=== PATIENT | male | born 1955 | race American Indian/Alaskan Native ===

== ENCOUNTER 2016-05-22 13:51 | Outpatient (CLI) | payer BC ==
--- NOTE | 2016-05-23 17:33 | Vascular Lab Report ---
LOWER EXTREMITY VENOUS DUPLEX: REASON FOR EXAM: Swelling. COMMENTS ON THE RIGHT: All veins visualized are freely compressible without evidence of internal echogenicity. Flow is spontaneous and phasic throughout. Soft tissue changes noted in the right lower extremity are consistent with swelling. COMMENTS ON THE LEFT: All veins visualized are freely compressible without evidence of internal echogenicity. Flow is spontaneous and phasic throughout. IMPRESSION: No evidence of acute or chronic deep venous thrombosis in either lower extremity.
== END 2016-05-22 13:52 | disposition home or self-care (01) ==
LOC: VAS 13:51
PROVIDERS: ATTEND Internal Medicine Hematology
DX: M25.571 Pain in right ankle and joints of right foot (principal); M25.572 Pain in left ankle and joints of left foot; C83.30 Diffuse large B-cell lymphoma, unspecified site
CPT/HCPCS: 93970

== ENCOUNTER 2016-06-26 13:26 | Outpatient (CLI) | payer BC ==
--- NOTE | 2016-06-27 08:30 | Vascular Lab Report ---
LOWER EXTREMITY VENOUS DUPLEX: REASON FOR EXAM: Swelling of the lower extremities. COMMENTS ON THE RIGHT: All veins visualized are freely compressible without evidence of internal echogenicity. Flow is spontaneous and phasic throughout. COMMENTS ON THE LEFT: All veins visualized are freely compressible without evidence of internal echogenicity. Flow is spontaneous and phasic throughout. IMPRESSION: No evidence of acute or chronic deep venous thrombosis in either lower extremity.
== END 2016-06-26 13:27 | disposition home or self-care (01) ==
LOC: VAS 13:26
PROVIDERS: ATTEND Internal Medicine Hematology
DX: M79.89 Other specified soft tissue disorders (principal); C83.30 Diffuse large B-cell lymphoma, unspecified site
CPT/HCPCS: 93970

== ENCOUNTER 2016-11-11 10:58 | Day surgery (SDC) | payer BC ==
[2016-11-11 12:06] LABS: INR 1.25 (0.87-1.13); Partial Thromboplastin Time 30.3 Sec. (24.2-36.6)
[2016-11-11] MEDS ORDERED: SUBLIMAZE IV ONE (14:33)
--- NOTE | 2016-11-11 14:59 | Short Stay Summary ---
Short Stay Documentation Date of service: 11/11/16 - History Past Medical History: other (lymphoma) - Allergies and Medications Current Medications: Allergies No Known Allergies Allergy (Verified 08/29/15 00:43) Home Medications Medication Instructions Recorded Confirmed Last Taken Type Hydrochlorothiazide [HCTZ] 25 mg PO QDAY #30 tablet 08/29/15 11/11/16 11/11/16 02:00 Rx 25mg AtorvaSTATin 40 mg PO DAILY 11/11/16 11/11/16 11/10/16 History 40mg Carvedilol 6.25 mg PO BID 11/11/16 11/11/16 11/10/16 History 6.25mg Furosemide 20 mg PO DAILY 11/11/16 11/11/16 11/11/16 History 0300 HYDROcodone/APAP 10-325 1 tab PO Q6H PRN 11/11/16 11/11/16 11/10/16 History 40mg Lisinopril [Zestril TAB] 20 mg PO DAILY 11/11/16 11/11/16 11/10/16 History 20mg [place] 10-325 mg TAB 1 tab PO Q6H 11/11/16 11/11/16 11/11/16 03:00 History 1 tab Pantoprazole 40 mg PO DAILY 11/11/16 11/11/16 11/10/16 History 40mg Potassium Chloride [Klor-Con 10] 10 meq PO DAILY 11/11/16 11/11/16 11/10/16 History 10meq Ursodiol 300 mg PO TID 11/11/16 11/11/16 11/10/16 History 300mg - Physical exam General appearance: no acute distress - Brief post op/procedure progress note Date of procedure: 11/11/16 Pre-op diagnosis: Rt pleural effusion Post-op diagnosis: same Procedure: US guided rt. thoracentesis Anesthesia: local Findings: 900 cc of slight blood tinged pleural fluid removed. Surgeon: ARCHIE DUNLAP Estimated blood loss: none Specimen disposition: to lab Condition: stable - Disposition Condition at discharge: Good Disposition: [id number] TO HOME OR SELFCARE Short Stay Discharge Plan Follow up with: KATHY TAY MD [Primary Care Provider] - 7 Days
--- NOTE | 2016-11-11 15:04 | Ultrasound Report ---
ULTRASOUND THORACENTESIS INDICATION: B-cell lymphoma. COMPARISON: None similar. FINDINGS: Ultrasound guided right thoracentesis performed. Written informed consent obtained after explaining the risks and benefits. Patient brought in the ultrasound room. An appropriate skin site marked. Using standard sterile precautions and 1% lidocaine for local anesthesia, 5 [place] Yueh catheter advanced into the pleural fluid. Total of approximately 900 cc of slight blood tinged serous fluid obtained with sample sent to the lab. Catheter removed and hemostasis achieved. Patient returned to [facility]PP[facility]. Patient given 25 mcg of fentanyl IV for post procedure pain. CONCLUSION: Status post left thoracentesis, as described. A 1 hour post procedure chest x-ray ordered. Dr. Laureano present for and performed the entire procedure. Thank you for the opportunity to participate in this patient's care.
[2016-11-11 15:40] VITALS: BP 148/89
--- NOTE | 2016-11-11 16:06 | XRay Report ---
PORTABLE CHEST INDICATION: Post right thoracentesis. COMPARISON: None similar. FINDINGS: Portable, frontal chest radiograph demonstrates mild bibasilar haziness, left greater than right with obscured left hemidiaphragm. No pneumothorax. Normal cardiomediastinal silhouette. Intact bones. CONCLUSION: No evidence of right pneumothorax with left basilar opacity and mild right basilar haziness, as described. Thank you for the opportunity to participate in this patient's care.
[2016-11-15 14:20] LABS: CYTOMETRY FIRST MARKER SCANNED INTO MED REC
[2016-11-15 14:21] LABS: FLOW CYTOMETRY >16 SCANNED INTO MED REC
== END 2016-11-11 14:23 | disposition home or self-care (01) ==
LOC: CATHLABREC 10:58 → EDSTATUS 11:01 → CATHLABREC 14:23
PROVIDERS: ATTEND Internal Medicine Hematology
DX: C83.30 Diffuse large B-cell lymphoma, unspecified site (principal)
CPT/HCPCS: 32555; 36415; 71010; 85610; 85730; 88112; 88184; 88185; 88305; 88341; 88342; 96374; J3010

== ENCOUNTER 2016-11-15 13:51 | Outpatient (CLI) | payer BC ==
--- NOTE | 2016-11-15 14:20 | XRay Report ---
CHEST 2 VIEWS INDICATION: Paracentesis. COMPARISON: 11/11/2016 FINDINGS: Frontal and lateral chest radiographs demonstrate partial interval clearing of bibasilar haziness, though small bilateral pleural effusions remain. Approximately 5 mm calcified granuloma again projects near the right costophrenic angle. Normal cardiomediastinal silhouette. Aortic knob calcifications. No CHF. Intact bones. CONCLUSION: Resolving bibasilar hazy atelectasis/effusions and few other incidental findings, as above. Thank you for the opportunity to participate in this patient's care.
== END 2016-11-15 13:52 | disposition home or self-care (01) ==
LOC: XRAY 13:51
PROVIDERS: ATTEND Internal Medicine
DX: J18.9 Pneumonia, unspecified organism (principal); J90 Pleural effusion, not elsewhere classified; J84.10 Pulmonary fibrosis, unspecified; I70.0 Atherosclerosis of aorta
CPT/HCPCS: 71020

== ENCOUNTER 2016-12-05 11:44 | Outpatient (CLI) | payer BC ==
--- NOTE | 2016-12-05 15:26 | XRay Report ---
CHEST 2 VIEWS INDICATION: Shortness of breath. COMPARISON: 11/15/2016 FINDINGS: PA and lateral chest radiographs again demonstrate small bibasilar effusions, right greater than left, partly obscuring the diaphragm. Stable cardiomediastinal silhouette, slight aortic knob calcifications and osseous structures. Approximately 5 mm calcified granuloma again projects about the right costophrenic angle. CONCLUSION: Small bibasilar effusions and few other stable findings, as above. Thank you for the opportunity to participate in this patient's care.
== END 2016-12-05 11:45 | disposition home or self-care (01) ==
LOC: SPVIMAG 11:44
PROVIDERS: ATTEND Internal Medicine Hematology
DX: J90 Pleural effusion, not elsewhere classified (principal); J84.10 Pulmonary fibrosis, unspecified; I70.0 Atherosclerosis of aorta; C83.30 Diffuse large B-cell lymphoma, unspecified site; I10 Essential (primary) hypertension; E78.00 Pure hypercholesterolemia, unspecified
CPT/HCPCS: 71020

== ENCOUNTER 2016-12-20 10:33 | Outpatient (CLI) | payer BC, OTHER ==
--- NOTE | 2016-12-20 15:14 | XRay Report ---
CHEST 2 VIEWS INDICATION: Shortness of breath. Recurrent effusions. COMPARISON: 12/05/2016 FINDINGS: PA and lateral chest radiographs demonstrate stable cardiomediastinal silhouette, right basilar opacity/small effusion, approximately 5 mm right lung base calcified granuloma, aortic knob calcifications and few spinal degenerative changes. CONCLUSION: Right basilar opacity/effusion again noted with few other incidental findings, as above. Thank you for the opportunity to participate in this patient's care.
== END 2016-12-20 10:34 | disposition home or self-care (01) ==
LOC: SPVIMAG 10:33
PROVIDERS: ATTEND Internal Medicine Hematology
DX: J84.10 Pulmonary fibrosis, unspecified (principal); I70.0 Atherosclerosis of aorta; C83.30 Diffuse large B-cell lymphoma, unspecified site
CPT/HCPCS: 71020

== ENCOUNTER 2016-12-23 11:23 | Inpatient (IN) | payer BC, OTHER ==
--- NOTE | 2016-12-23 12:26 | Consultation ---
History of Present Illness History of present illness: This is a patient with hx of NHL and recurrent pleural effusion sp at least 2 thoracentesis with neg cytology and now recurrent eff seen on cxr 12/20 and worsening symptoms. He was seen in office on friday cxr done at [facility] showed reaccumulation of fluid. Pleurodisis vs pleurx cath was discussed at that visit. This am pt called and came in reporting worsening dyspnea. No associated fever Past History Past Medical History: other (NHL) Social history: , lives with family Family history: hypertension Medications and Allergies Allergies Allergy/AdvReac Type Severity Reaction Status Date / Time No Known Allergies Allergy Verified 08/29/15 00:43 Home Medications Medication Instructions Recorded Confirmed Last Taken Type Hydrochlorothiazide [HCTZ] 25 mg PO QDAY #30 tablet 08/29/15 11/11/16 11/11/16 02:00 Rx 25mg AtorvaSTATin 40 mg PO DAILY 11/11/16 11/11/16 11/10/16 History 40mg Carvedilol 6.25 mg PO BID 11/11/16 11/11/16 11/10/16 History 6.25mg Furosemide 20 mg PO DAILY 11/11/16 11/11/16 11/11/16 History 0300 HYDROcodone/APAP 10-325 1 tab PO Q6H PRN 11/11/16 11/11/16 11/10/16 History 40mg Lisinopril [Zestril TAB] 20 mg PO DAILY 11/11/16 11/11/16 11/10/16 History 20mg [place] 10-325 mg TAB 1 tab PO Q6H 11/11/16 11/11/16 11/11/16 03:00 History 1 tab Pantoprazole 40 mg PO DAILY 11/11/16 11/11/16 11/10/16 History 40mg Potassium Chloride [Klor-Con 10] 10 meq PO DAILY 11/11/16 11/11/16 11/10/16 History 10meq Ursodiol 300 mg PO TID 11/11/16 11/11/16 11/10/16 History 300mg Physical Examination Eyes: non-icteric ENT: oropharynx moist Neck: supple Effort: normal Ascultation: Right: diminished breath sounds Percussion: Right: dull (1/4) Cardiovascular: regular rate and rhythm Gastrointestinal: normoactive bowel sounds, soft, non-tender Integumentary: normal Extremities: no cyanosis Musculoskeletal: no deformities Assessment and Plan - Patient Problems (1) Non-Hodgkin lymphoma Status: Acute Qualifiers: Non-Hodgkin lymphoma type: N Follicular lymphoma type: F Follicular lymphoma grade: F Non-follicular lymphoma type: N Mature NK/T-cell lymphoma type: M B-cell lymphoma type: B Other specified types of NK/T-cell lymphoma : O Lymphoma site: L (2) Pleural effusion Status: Acute
[2016-12-23 13:53] LABS: Hematocrit 43.7 % (35.5-45.6); Hemoglobin 13.8 gm/dl (11.8-15.2); Mean Corpuscular HGB Conc 32 % (32-34); Mean Corpuscular Hemoglobin 26 pg (28-32); Mean Corpuscular Volume 83 fl (84-94); Platelet Count 136 K/mm3 (140-440); Red Blood Count 5.29 M/mm3 (3.65-5.03); Red Cell Distribution Width 15.5 % (13.2-15.2); White Blood Count 4.2 K/mm3 (4.5-11.0)
[2016-12-23 14:01] LABS: INR 1.19 (0.87-1.13)
[2016-12-23 14:29] LABS: Alanine Aminotransferase 15 units/L (7-56); Albumin 3.7 g/dL (3.9-5); Albumin/Globulin Ratio 1.5 %; Alkaline Phosphatase 102 units/L (35-129); Anion Gap 19 mmol/L; Blood Urea Nitrogen 12 mg/dL (9-20); Calcium 8.8 mg/dL (8.4-10.2); Carbon Dioxide 24 mmol/L (22-30); Chloride 105.5 mmol/L (98-107); Glucose 172 mg/dL (75-100); Sodium 144 mmol/L (137-145); Total Protein 6.1 g/dL (6.3-8.2)
[2016-12-23 15:05] LABS: Blastocytes % (Manual) 0 %
[2016-12-23 15:06] LABS: Diff Status Complete; Elliptocytes Few; Ovalocytes Few; Platelet Estimate Consistent w Auto; Poikilocytosis Few
--- NOTE | 2016-12-23 16:35 | Ultrasound Report ---
ULTRASOUND CHEST History: Recurrent right pleural effusion. Findings: Transabdominal grayscale images were obtained along the right side of the chest. The images demonstrate a moderate right pleural effusion with volume estimated at 452 cc. This exam was scheduled for an ultrasound-guided thoracentesis. The patient was uncertain if he wanted to proceed with the exam. It was decided to postpone the exam until tomorrow until the patient has time to consult with the ordering physician. Impression: Moderate right pleural effusion estimated at 452 cc. The patient did not consent for ultrasound thoracentesis. See above.
[2016-12-23] MEDS ORDERED: MORPHINE IV PRN (18:41)
--- NOTE | 2016-12-23 21:47 | History and Physical Report ---
History of Present Illness Date of examination: 12/23/16 Date of admission: 12/23/16 13:24 Chief complaint: CC Increasing SOB 3 days History of present illness: 61 year old male with recurrent RT pleural effusion s/p thoracentesisx2 sent in from Dr Marie's office for thoracentesis/Pleurodesis.Patient has Non Hogkin's Lymphoma in Apparent remission.No Chest pain.No fever or chills. Patient is a direct admit Past History Past Medical History: hypertension, hyperlipidemia, other (NHL) Past Surgical History: Other (S/p Thoracentesis) Social history: , lives with family Family history: hypertension Medications and Allergies Allergies Allergy/AdvReac Type Severity Reaction Status Date / Time No Known Allergies Allergy Verified 08/29/15 00:43 Home Medications Medication Instructions Recorded Confirmed Last Taken Type AtorvaSTATin 40 mg PO DAILY 11/11/16 12/23/16 12/22/16 History Carvedilol 6.25 mg PO BID 11/11/16 12/23/16 12/22/16 History Lisinopril [Zestril TAB] 20 mg PO DAILY 11/11/16 12/23/16 12/22/16 History [place] 10-325 mg TAB 1 tab PO Q6H 11/11/16 12/23/16 12/22/16 History Pantoprazole 40 mg PO DAILY 11/11/16 12/23/16 12/22/16 History Potassium Chloride [Klor-Con 10] 10 meq PO BID MDD 2 11/11/16 12/23/16 12/22/16 History Ursodiol 300 mg PO TID MDD 3 11/11/16 12/23/16 12/22/16 History Active Meds: Active Medications Morphine Sulfate (Morphine) 2 mg IV Q4H PRN PRN Reason: Pain, Moderate (4-6) Review of Systems All systems: negative Constitutional: no weight loss, no weight gain, no fever, no chills, no sweats, no night sweats Ears, nose, mouth and throat: no dysphagia, no hoarseness, no sore throat, no swelling in mouth, no swelling in throat, no odynophagia Cardiovascular: shortness of breath, no chest pain, no orthopnea, no palpitations, no rapid/irregular heart beat, no edema, no syncope, no lightheadedness Respiratory: shortness of breath, dyspnea on exertion, no cough, no cough with sputum, no excessive sputum, no hemoptysis Gastrointestinal: no abdominal pain, no nausea, no vomiting, no diarrhea, no constipation, no change in bowel habits, no hematemesis, no coffee ground emesis Genitourinary Male: no dysuria, no hematuria, no flank pain, no discharge, no urinary frequency, no urinary hesitancy, no nocturia Rectal: no pain Musculoskeletal: no neck stiffness, no neck pain, no shooting arm pain, no arm numbness/tingling, no low back pain, no shooting leg pain, no leg numbness/ tingling, no redness of joints Integumentary: no rash, no pruritis, no redness, no sores, no wounds, no jaundice, no boils, no blisters Neurological: no seizures, no syncope Psychiatric: no anxiety, no memory loss, no change in sleep habits, no sleep disturbances, no insomnia, no hypersomnia, no change in appetite, no change in libido Endocrine: no cold intolerance, no heat intolerance, no polyphagia, no excessive thirst, no polydipsia, no polyuria, no nocturia, no excessive sweating , no flushing, no weight change Hematologic/Lymphatic: no easy bruising, no easy bleeding Allergic/Immunologic: no urticaria, no allergic rhinitis, no wheezing Exam - Constitutional Vitals: Temp Pulse Resp BP Pulse Ox 98.2 F 109 H 20 171/108 92 12/23/16 16:46 12/23/16 16:46 12/23/16 16:46 12/23/16 16:46 12/23/16 16:46 General appearance: Present: no acute distress, well-nourished - EENT Eyes: Present: PERRL ENT: hearing intact, clear oral mucosa - Neck Neck: Present: supple, normal ROM - Respiratory Respiratory effort: normal Respiratory: bilateral: CTA - Cardiovascular Heart Sounds: Present: S1 & S2. Absent: rub, click - Extremities Extremities: pulses symmetrical, No edema Peripheral Pulses: within normal limits - Abdominal General gastrointestinal: Present: soft, non-tender, non-distended, normal bowel sounds Male genitourinary: Present: normal - Integumentary Integumentary: Present: clear, warm, dry - Musculoskeletal Musculoskeletal: gait normal, strength equal bilaterally - Psychiatric Psychiatric: appropriate mood/affect, intact judgment & insight - Neurologic Neurologic: CNII-XII intact, moves all extremities Results - Labs CBC & Chem 7: 12/23/16 23:11 12/23/16 23:11 Labs: Laboratory Last Values WBC 4.2 K/mm3 (4.5-11.0) L 12/23/16 13:31 RBC 5.29 M/mm3 (3.65-5.03) H 12/23/16 13:31 Hgb 13.8 gm/dl (11.8-15.2) 12/23/16 13:31 Hct 43.7 % (35.5-45.6) 12/23/16 13:31 MCV 83 fl (84-94) L 12/23/16 13:31 MCH 26 pg (28-32) L 12/23/16 13:31 MCHC 32 % (32-34) 12/23/16 13:31 RDW 15.5 % (13.2-15.2) H 12/23/16 13:31 Plt Count 136 K/mm3 (140-440) L 12/23/16 13:31 [place] % (Auto) Trench Pipe Layer 12/23/16 13:31 Add Manual Diff Complete 12/23/16 13:31 Total Counted 100 12/23/16 13:31 Seg Neuts % (Manual) 52.0 % (40.0-70.0) 12/23/16 13:31 Band Neutrophils % 0 % 12/23/16 13:31 Lymphocytes % (Manual) 21.0 % (13.4-35.0) 12/23/16 13:31 Reactive Lymphs % (Man) 0 % 12/23/16 13:31 Monocytes % (Manual) 25.0 % (0.0-7.3) H 12/23/16 13:31 Eosinophils % (Manual) 2.0 % (0.0-4.3) 12/23/16 13:31 Metamyelocytes % 0 % 12/23/16 13:31 Myelocytes % 0 % 12/23/16 13:31 Promyelocytes % 0 % 12/23/16 13:31 Blast Cells % 0 % 12/23/16 13:31 Nucleated RBC % Not Reportable 12/23/16 13:31 Seg Neutrophils # Man 2.2 K/mm3 (1.8-7.7) 12/23/16 13:31 Band Neutrophils # 0.0 K/mm3 12/23/16 13:31 Lymphocytes # (Manual) 0.9 K/mm3 (1.2-5.4) L 12/23/16 13:31 Abs React Lymphs (Man) 0.0 K/mm3 12/23/16 13:31 Monocytes # (Manual) 1.1 K/mm3 (0.0-0.8) H 12/23/16 13:31 Eosinophils # (Manual) 0.1 K/mm3 (0.0-0.4) 12/23/16 13:31 Basophils # (Manual) 0.0 K/mm3 (0.0-0.1) 12/23/16 13:31 Metamyelocytes # 0.0 K/mm3 12/23/16 13:31 Myelocytes # 0.0 K/mm3 12/23/16 13:31 Promyelocytes # 0.0 K/mm3 12/23/16 13:31 Blast Cells # 0.0 K/mm3 12/23/16 13:31 WBC Morphology Not Reportable 12/23/16 13:31 Hypersegmented Neuts Not Reportable 12/23/16 13:31 Hyposegmented Neuts Not Reportable 12/23/16 13:31 Hypogranular Neuts Not Reportable 12/23/16 13:31 Smudge Cells Not Reportable 12/23/16 13:31 Toxic Granulation Not Reportable 12/23/16 13:31 Toxic Vacuolation Not Reportable 12/23/16 13:31 Dohle Bodies Not Reportable 12/23/16 13:31 Pelger-Huet Anomaly Not Reportable 12/23/16 13:31 River Rods Not Reportable 12/23/16 13:31 Platelet Estimate Consistent w auto 12/23/16 13:31 Clumped Platelets Not Reportable 12/23/16 13:31 Plt Clumps, EDTA Not Reportable 12/23/16 13:31 Large Platelets Not Reportable 12/23/16 13:31 Giant Platelets Not Reportable 12/23/16 13:31 Platelet Satelliting Not Reportable 12/23/16 13:31 Plt Morphology Comment Not Reportable 12/23/16 13:31 RBC Morphology Not Reportable 12/23/16 13:31 Dimorphic RBCs Not Reportable 12/23/16 13:31 Polychromasia Not Reportable 12/23/16 13:31 Hypochromasia Not Reportable 12/23/16 13:31 Poikilocytosis Few 12/23/16 13:31 Anisocytosis Not Reportable 12/23/16 13:31 Microcytosis Not Reportable 12/23/16 13:31 Macrocytosis Not Reportable 12/23/16 13:31 Spherocytes Not Reportable 12/23/16 13:31 Pappenheimer Bodies Not Reportable 12/23/16 13:31 Sickle Cells Not Reportable 12/23/16 13:31 Target Cells Not Reportable 12/23/16 13:31 Tear Drop Cells Not Reportable 12/23/16 13:31 Ovalocytes Few 12/23/16 13:31 Helmet Cells Not Reportable 12/23/16 13:31 [facility] Bodies Not Reportable 12/23/16 13:31 Gerald Rings Not Reportable 12/23/16 13:31 [place] Cells Not Reportable 12/23/16 13:31 Bite Cells Not Reportable 12/23/16 13:31 Crenated Cell Not Reportable 12/23/16 13:31 Elliptocytes Few 12/23/16 13:31 Acanthocytes (Spur) Not Reportable 12/23/16 13:31 Rouleaux Not Reportable 12/23/16 13:31 Hemoglobin C Crystals Not Reportable 12/23/16 13:31 Schistocytes Not Reportable 12/23/16 13:31 Malaria parasites Not Reportable 12/23/16 13:31 Ivan Bodies Not Reportable 12/23/16 13:31 Hem Pathologist Commnt No 12/23/16 13:31 PT 15.0 Sec. (12.2-14.9) H 12/23/16 13:31 INR 1.19 (0.87-1.13) H 12/23/16 13:31 Sodium 144 mmol/L (137-145) 12/23/16 13:31 Potassium 4.0 mmol/L (3.6-5.0) 12/23/16 13:31 Chloride 105.5 mmol/L (98-107) 12/23/16 13:31 Carbon Dioxide 24 mmol/L (22-30) 12/23/16 13:31 Anion Gap 19 mmol/L 12/23/16 13:31 BUN 12 mg/dL (9-20) 12/23/16 13:31 Creatinine 0.8 mg/dL (0.8-1.5) 12/23/16 13:31 Estimated GFR > 60 ml/min 12/23/16 13:31 BUN/Creatinine Ratio 15.00 % 12/23/16 13:31 Glucose 172 mg/dL (75-100) H 12/23/16 13:31 Calcium 8.8 mg/dL (8.4-10.2) 12/23/16 13:31 Total Bilirubin 1.10 mg/dL (0.1-1.2) 12/23/16 13:31 AST 25 units/L (5-40) 12/23/16 13:31 ALT 15 units/L (7-56) 12/23/16 13:31 Alkaline Phosphatase 102 units/L (35-129) 12/23/16 13:31 Lactate Dehydrogenase 189 units/L (91-180) H 12/23/16 13:31 Total Protein 6.1 g/dL (6.3-8.2) L 12/23/16 13:31 Albumin 3.7 g/dL (3.9-5) L 12/23/16 13:31 Albumin/Globulin Ratio 1.5 % 12/23/16 13:31 - Imaging and Cardiology Chest x-ray: report reviewed (Rt pleural effusion est Vol 450 cc) Assessment and Plan Advance Directives: Yes (Full code) VTE prophylaxis?: Chemical Plan of care discussed with patient/family: Yes - Patient Problems (1) Pleural effusion Current Visit: Yes Status: Acute Plan to address problem: Patient refused Thoracentesistoday For Pleurodesis Dr Thurman consulted (2) Non-Hodgkin lymphoma Current Visit: Yes Status: Chronic Qualifiers: Non-Hodgkin lymphoma type: N Follicular lymphoma type: F Follicular lymphoma grade: F Non-follicular lymphoma type: N Mature NK/T-cell lymphoma type: M B-cell lymphoma type: B Other specified types of NK/T-cell lymphoma : O Lymphoma site: L Plan to address problem: Apparently in remission Dr Deras consulted (3) HTN (hypertension) Current Visit: Yes Status: Chronic Qualifiers: Hypertension type: essential hypertension Qualified Code(s): I10 - Essential (primary) hypertension Plan to address problem: Cont Lisinopril and carvedilol (4) HLD (hyperlipidemia) Current Visit: Yes Status: Chronic Qualifiers: Hyperlipidemia type: mixed hyperlipidemia Qualified Code(s): E78.2 - Mixed hyperlipidemia Plan to address problem: Cont statins (5) GERD (gastroesophageal reflux disease) Current Visit: Yes Status: Chronic Qualifiers: Esophagitis presence: without esophagitis Qualified Code(s): K21.9 - Gastro -esophageal reflux disease without esophagitis Plan to address problem: Cont protonix (6) DVT prophylaxis Current Visit: Yes Status: Acute Plan to address problem: Cont lovenox
[2016-12-23] MEDS ORDERED: PERCOCET 5/325 PO PRN (21:49)
[2016-12-23] MEDS ORDERED: ZOFRAN IV PRN (21:49)
[2016-12-23] MEDS ORDERED: DULCOLAX PR PRN (21:49)
[2016-12-23] MEDS ORDERED: TYLENOL PO PRN (21:49)
[2016-12-23] MEDS ORDERED: MILK OF MAGNESIA PO PRN (21:49)
[2016-12-23] MEDS: ZESTRIL PO SCH (22:32)
[2016-12-23] MEDS: K-DUR PO SCH (22:32)
[2016-12-23] MEDS: COREG PO SCH (22:37)
[2016-12-23 23:29] LABS: Hematocrit 45.8 % (35.5-45.6); Hemoglobin 14.5 gm/dl (11.8-15.2); Mean Corpuscular HGB Conc 32 % (32-34); Mean Corpuscular Hemoglobin 26 pg (28-32); Mean Corpuscular Volume 82 fl (84-94); Platelet Count 154 K/mm3 (140-440); Red Blood Count 5.57 M/mm3 (3.65-5.03); Red Cell Distribution Width 15.6 % (13.2-15.2); White Blood Count 5.1 K/mm3 (4.5-11.0)
[2016-12-23 23:55] LABS: Alanine Aminotransferase 16 units/L (7-56); Albumin 3.5 g/dL (3.9-5); Albumin/Globulin Ratio 1.3 %; Alkaline Phosphatase 109 units/L (35-129); Anion Gap 18 mmol/L; BUN/Creatinine Ratio 14.28; Blood Urea Nitrogen 10 mg/dL (9-20); Calcium 8.5 mg/dL (8.4-10.2); Carbon Dioxide 21 mmol/L (22-30); Chloride 104.4 mmol/L (98-107); Glucose 153 mg/dL (75-100); Potassium 3.8 mmol/L (3.6-5.0); Sodium 140 mmol/L (137-145); Total Protein 6.3 g/dL (6.3-8.2)
[2016-12-24 01:33] LABS: Anisocytosis 1+; Basophils % (Manual) 0 % (0.0-1.8); Blastocytes % (Manual) 0 %; Elliptocytes Few; Ovalocytes Rare
[2016-12-24 01:34] LABS: Diff Status Complete; Platelet Estimate Appe
[2016-12-24 06:41] LABS: Hematocrit 43.3 % (35.5-45.6); Hemoglobin 13.7 gm/dl (11.8-15.2); Mean Corpuscular HGB Conc 32 % (32-34); Mean Corpuscular Volume 82 fl (84-94); Red Blood Count 5.28 M/mm3 (3.65-5.03); Red Cell Distribution Width 15.7 % (13.2-15.2)
[2016-12-24 06:47] LABS: Mean Corpuscular Hemoglobin 26 pg (28-32); Platelet Count 128 K/mm3 (140-440)
[2016-12-24 07:00] LABS: Alanine Aminotransferase 14 units/L (7-56); Albumin 3.3 g/dL (3.9-5); Albumin/Globulin Ratio 1.4 %; Alkaline Phosphatase 94 units/L (35-129); Anion Gap 17 mmol/L; BUN/Creatinine Ratio 14.28; Blood Urea Nitrogen 10 mg/dL (9-20); Calcium 8.5 mg/dL (8.4-10.2); Carbon Dioxide 24 mmol/L (22-30); Chloride 106.2 mmol/L (98-107); Glucose 92 mg/dL (75-100); Potassium 3.9 mmol/L (3.6-5.0); Sodium 143 mmol/L (137-145); Total Protein 5.7 g/dL (6.3-8.2)
[2016-12-24] MEDS ORDERED: URSODIOL 300 MG PO SCH (08:00)
[2016-12-24 08:42] LABS: Blastocytes % (Manual) 0 %
[2016-12-24 08:43] LABS: Anisocytosis 1+; Diff Status Complete; Elliptocytes Few; Hypochromasia 1+; Ovalocytes Rare; Platelet Estimate Consistent w Auto; Poikilocytosis 1+
[2016-12-24] MEDS ORDERED: PROTONIX PO SCH (10:00)
--- NOTE | 2016-12-24 10:09 | Procedure Note ---
Date of procedure: 12/24/16 Pre-op diagnosis: Pleural effusion Post-op diagnosis: same Procedure: Thoracentesis Anesthesia: local Surgeon: VIANCA COWART Estimated blood loss: none Pathology: none Specimen disposition: discarded Condition: stable Disposition: floor
--- NOTE | 2016-12-24 10:16 | XRay Report ---
AP expiratory chest x-ray. History: Status post right thoracentesis. Findings: There is no evidence of pneumothorax. There is decreased pleural effusion on the right compared to the previous study. A new left pleural effusion is also noted.
[2016-12-24 10:40] VITALS: BP 134/86
[2016-12-24] MEDS: COREG PO SCH (10:41)
[2016-12-24] MEDS: K-DUR PO SCH (10:42)
[2016-12-24] MEDS: ZESTRIL PO SCH (10:42)
[2016-12-24] MEDS: ACTIGALL NICU PO SCH ×2 (11:01→16:30)
--- NOTE | 2016-12-24 11:29 | Progress Note ---
Assessment and Plan 61 y/o male with recurrent pleural effusion of unknown etiology. 1. Follow up PFA and other studies 2. stable for discharge from a pulmonary standpoint. Subjective Date of service: 12/24/16 Interval history: patient had thora done this am. Tolerated well. Objective Vital Signs - 12hr 12/24/16 12/24/16 12/24/16 07:54 08:06 10:38 Temperature 98.0 F 97.6 F Pulse Rate 82 Respiratory 18 20 18 Rate Blood Pressure 130/80 134/86 O2 Sat by Pulse 96 Oximetry 12/24/16 12/24/16 10:41 10:42 Temperature Pulse Rate 79 79 Respiratory Rate Blood Pressure 134/86 134/86 O2 Sat by Pulse Oximetry Eyes: non-icteric ENT: oropharynx moist Neck: supple Effort: normal Ascultation: Right: diminished breath sounds Percussion: Right: dull (1/4) Cardiovascular: regular rate and rhythm Gastrointestinal: normoactive bowel sounds, soft, non-tender Integumentary: normal Extremities: no cyanosis CBC and BMP: 12/24/16 05:31 12/24/16 05:31 ABG, PT/INR, D-dimer: PT/INR, D-dimer PT 15.0 Sec. (12.2-14.9) H 12/23/16 13:31 INR 1.19 (0.87-1.13) H 12/23/16 13:31 Abnormal lab findings: Abnormal Labs 12/23/16 12/23/16 12/23/16 13:31 13:31 13:31 WBC 4.2 L RBC 5.29 H Hct MCV 83 L MCH 26 L RDW 15.5 H Plt Count 136 L Monocytes % (Manual) 25.0 H Lymphocytes # (Manual) 0.9 L Monocytes # (Manual) 1.1 H PT 15.0 H INR 1.19 H Carbon Dioxide Creatinine Glucose 172 H Total Bilirubin Lactate Dehydrogenase Total Protein 6.1 L Albumin 3.7 L 12/23/16 12/23/16 12/23/16 13:31 23:11 23:11 WBC RBC 5.57 H Hct 45.8 H MCV 82 L MCH 26 L RDW 15.6 H Plt Count Monocytes % (Manual) 9.0 H Lymphocytes # (Manual) 1.0 L Monocytes # (Manual) PT INR Carbon Dioxide 21 L Creatinine 0.7 L Glucose 153 H Total Bilirubin Lactate Dehydrogenase 189 H Total Protein Albumin 3.5 L 12/24/16 12/24/16 05:31 05:31 WBC 4.0 L RBC 5.28 H Hct MCV 82 L MCH 26 L RDW 15.7 H Plt Count 128 L Monocytes % (Manual) Lymphocytes # (Manual) Monocytes # (Manual) PT INR Carbon Dioxide Creatinine 0.7 L Glucose Total Bilirubin 1.30 H Lactate Dehydrogenase Total Protein 5.7 L Albumin 3.3 L
--- NOTE | 2016-12-24 11:58 | Ultrasound Report ---
Ultrasound guided thoracentesis. History: Pleural effusion. Procedure: The patient's skin surface was prepped and draped overlying the right posterior thorax. Local anesthetic was injected in the skin. Using sonographic guidance, a 5 [place] Yueh catheter was inserted. 750 cc of serosanguineous fluid was aspirated on. The patient tolerated the procedure well clinically. An AP excretory chest x-ray was ordered. The patient was sent to the floor as an inpatient in satisfactory condition.
--- NOTE | 2016-12-24 15:43 | Discharge Summary ---
Providers - Providers Date of Admission: 12/23/16 13:24 Date of discharge: 12/24/16 Attending physician: KUSH MOTA 12/23/16 11:34 Consult to Physician [CONS] Routine Consulting Provider: LOLIS FLETCHER Reason For Exam: RECURRENT RT. PLEURAL EFFUSION Place consult to:: dr. fletcher Notified:: office Phone number called:: Was contact made?: Yes If yes, spoke with:: fay Time called:: 16:03 12/24/16 06:56 Consult to Physician [CONS] Routine Consulting Provider: GARCIA PEPPER Reason For Exam: n[facility] Place consult to:: Notified:: Answering Services Phone number called:: [phone] Was contact made?: Yes If yes, spoke with:: Mary Kay Time called:: 08:07 Comment:: GENE NOTIFIED Primary care physician: KATHY TAY Hospitalization Reason for admission: SOB Procedures: Thoracentesis Disposition: DC- TO HOME OR SELFCARE Time spent for discharge: 32 min Core Measure Documentation - Palliative Care Palliative Care/ Comfort Measures: Not Applicable Exam - Constitutional Vitals: Temp Pulse Resp BP Pulse Ox 97.6 F 79 18 134/86 96 12/24/16 10:38 12/24/16 10:42 12/24/16 10:38 12/24/16 10:42 12/24/16 10:38 Plan Activity: advance as tolerated Diet: low cholesterol, low salt Follow up with: KATHY TAY MD [Primary Care Provider] - 7 Days LOLIS FLETCHER MD [Staff Physician] - 7 Days Prescriptions: oxyCODONE /ACETAMINOPHEN [Percocet 5/325 mg] 1 tab PO Q6H PRN #8 tablet PRN Reason: Pain, Moderate (4-6)
--- NOTE | 2016-12-24 16:35 | Hem/Onc Progress Note ---
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 DC home. Outpatient follow up. For pleurex placement. Subjective Date of service: 12/24/16 Interval history: He feels much better. No new complains. Objective - Constitutional Vitals: Last Vital Signs Temp 97.6 F 12/24/16 10:38 Pulse 79 12/24/16 10:42 Resp 18 12/24/16 10:38 BP 134/86 12/24/16 10:42 Pulse Ox 96 12/24/16 10:38 General appearance: no acute distress - Neck Neck: supple - Respiratory Respiratory: bilateral: CTA - Cardiovascular Rhythm: regular - Labs Lab Results: Laboratory Results - last 24 hr 12/23/16 12/23/16 12/24/16 23:11 23:11 05:31 WBC 5.1 4.0 L RBC 5.57 H 5.28 H Hgb 14.5 13.7 Hct 45.8 H 43.3 MCV 82 L 82 L MCH 26 L 26 L MCHC 32 32 RDW 15.6 H 15.7 H Plt Count 154 128 L [place] % (Auto) Dietary Cook Dietary Cook Add Manual Diff Complete Complete Total Counted 100 100 Seg Neuts % (Manual) 67.0 59.0 Band Neutrophils % 2.0 0 Lymphocytes % (Manual) 19.0 34.0 Reactive Lymphs % (Man) 0 0 Monocytes % (Manual) 9.0 H 3.0 Eosinophils % (Manual) 3.0 3.0 Basophils % (Manual) 0 1.0 Metamyelocytes % 0 0 Myelocytes % 0 0 Promyelocytes % 0 0 Blast Cells % 0 0 Nucleated RBC % Not Reportable Not Reportable Seg Neutrophils # Man 3.4 2.4 Band Neutrophils # 0.1 0.0 Lymphocytes # (Manual) 1.0 L 1.4 Abs React Lymphs (Man) 0.0 0.0 Monocytes # (Manual) 0.5 0.1 Eosinophils # (Manual) 0.2 0.1 Basophils # (Manual) 0.0 0.0 Metamyelocytes # 0.0 0.0 Myelocytes # 0.0 0.0 Promyelocytes # 0.0 0.0 Blast Cells # 0.0 0.0 WBC Morphology Not Reportable Not Reportable Hypersegmented Neuts Not Reportable Not Reportable Hyposegmented Neuts Not Reportable Not Reportable Hypogranular Neuts Not Reportable Not Reportable Smudge Cells Not Reportable Not Reportable Toxic Granulation Not Reportable Not Reportable Toxic Vacuolation Not Reportable Not Reportable Dohle Bodies Not Reportable Not Reportable Pelger-Huet Anomaly Not Reportable Not Reportable River Rods Not Reportable Not Reportable Platelet Estimate Appe Consistent w auto Clumped Platelets Not Reportable Not Reportable Plt Clumps, EDTA Not Reportable Not Reportable Large Platelets Not Reportable Not Reportable Giant Platelets Not Reportable Not Reportable Platelet Satelliting Not Reportable Not Reportable Plt Morphology Comment Not Reportable Not Reportable RBC Morphology Not Reportable Not Reportable Dimorphic RBCs Not Reportable Not Reportable Polychromasia Not Reportable Not Reportable Hypochromasia Not Reportable 1+ Poikilocytosis Not Reportable 1+ Anisocytosis 1+ 1+ Microcytosis Not Reportable Not Reportable Macrocytosis Not Reportable Not Reportable Spherocytes Not Reportable Not Reportable Pappenheimer Bodies Not Reportable Not Reportable Sickle Cells Not Reportable Not Reportable Target Cells Not Reportable Not Reportable Tear Drop Cells Not Reportable Not Reportable Ovalocytes Rare Rare Helmet Cells Not Reportable Not Reportable Sanders-Finklea Bodies Not Reportable Not Reportable Dazey Rings Not Reportable Not Reportable Ricardo Cells Not Reportable Not Reportable Bite Cells Not Reportable Not Reportable Crenated Cell Not Reportable Not Reportable Elliptocytes Few Few Acanthocytes (Spur) Not Reportable Not Reportable Rouleaux Not Reportable Not Reportable Hemoglobin C Crystals Not Reportable Not Reportable Schistocytes Not Reportable Not Reportable Malaria parasites Not Reportable Not Reportable Ivan Bodies Not Reportable Not Reportable Hem Pathologist Commnt No No Sodium 140 Potassium 3.8 Chloride 104.4 Carbon Dioxide 21 L Anion Gap 18 BUN 10 Creatinine 0.7 L Estimated GFR > 60 BUN/Creatinine Ratio 14.28 Glucose 153 H Calcium 8.5 Total Bilirubin 1.00 AST 26 ALT 16 Alkaline Phosphatase 109 Total Protein 6.3 Albumin 3.5 L Albumin/Globulin Ratio 1.3 12/24/16 05:31 WBC RBC Hgb Hct MCV MCH MCHC RDW Plt Count [place] % (Auto) Add Manual Diff Total Counted Seg Neuts % (Manual) Band Neutrophils % Lymphocytes % (Manual) Reactive Lymphs % (Man) Monocytes % (Manual) Eosinophils % (Manual) Basophils % (Manual) Metamyelocytes % Myelocytes % Promyelocytes % Blast Cells % Nucleated RBC % Seg Neutrophils # Man Band Neutrophils # Lymphocytes # (Manual) Abs React Lymphs (Man) Monocytes # (Manual) Eosinophils # (Manual) Basophils # (Manual) Metamyelocytes # Myelocytes # Promyelocytes # Blast Cells # WBC Morphology Hypersegmented Neuts Hyposegmented Neuts Hypogranular Neuts Smudge Cells Toxic Granulation Toxic Vacuolation Dohle Bodies Pelger-Huet Anomaly River Rods Platelet Estimate Clumped Platelets Plt Clumps, EDTA Large Platelets Giant Platelets Platelet Satelliting Plt Morphology Comment RBC Morphology Dimorphic RBCs Polychromasia Hypochromasia Poikilocytosis Anisocytosis Microcytosis Macrocytosis Spherocytes Pappenheimer Bodies Sickle Cells Target Cells Tear Drop Cells Ovalocytes Helmet Cells Sanders-Finklea Bodies Dazey Rings Ricardo Cells Bite Cells Crenated Cell Elliptocytes Acanthocytes (Spur) Rouleaux Hemoglobin C Crystals Schistocytes Malaria parasites Ivan Bodies Hem Pathologist Commnt Sodium 143 Potassium 3.9 Chloride 106.2 Carbon Dioxide 24 Anion Gap 17 BUN 10 Creatinine 0.7 L Estimated GFR > 60 BUN/Creatinine Ratio 14.28 Glucose 92 Calcium 8.5 Total Bilirubin 1.30 H AST 24 ALT 14 Alkaline Phosphatase 94 Total Protein 5.7 L Albumin 3.3 L Albumin/Globulin Ratio 1.4
[2016-12-24] MEDS ORDERED: LOVENOX SUB-Q SCH (22:00)
== END 2016-12-24 17:00 | disposition home or self-care (01) | DRG 187 ==
LOC: 3A 11:23 → UNDOADMIN 11:23 → 3A 13:24
PROVIDERS: ADMIT Internal Medicine; ATTEND Internal Medicine
PROC: 0W9930Z Drainage of Right Pleural Cavity with Drainage Device, Percutaneous Approach (ICD-10-PCS; principal; 2016-12-24)
DX: J90 Pleural effusion, not elsewhere classified (principal); C85.90 Non-Hodgkin lymphoma, unspecified, unspecified site; Z79.899 Other long term (current) drug therapy; I10 Essential (primary) hypertension; E78.2 Mixed hyperlipidemia; K21.9 Gastro-esophageal reflux disease without esophagitis; Z82.49 Family history of ischemic heart disease and other diseases of the circulatory system
CPT/HCPCS: 32555; 36415; 71010; 76604; 80053; 83615; 85007; 85025; 85610; A9270-GY; J2270

== ENCOUNTER → 2017-11-14 00:06 | Emergency (ER) | payer SELFPAY | END | disposition left against medical advice (07) | LOC: ED 00:06 | DX: Z00.8 Encounter for other general examination (principal); Z53.21 Procedure and treatment not carried out due to patient leaving prior to being seen by health care provider ==